=== PATIENT | male | born 1955 | race Caucasian/White ===

== ENCOUNTER → 2018-12-18 | Emergency (ER) | payer SELFPAY | END | disposition home or self-care (01) | LOC: FTE 10:32 | DX: L03.312 Cellulitis of back [any part except buttock and flank] (principal); F17.210 Nicotine dependence, cigarettes, uncomplicated; L72.0 Epidermal cyst | CPT/HCPCS: 99283 ==

== ENCOUNTER 2018-12-21 09:54 | Emergency (ER) | payer SELFPAY, MEDICAID ==
[2018-12-21] MEDS: LIDOCAINE 1% (MDV) 20 ML INJ SC (11:26)
== END 2018-12-21 12:44 | disposition home or self-care (01) ==
LOC: FTE 12:44
DX: L72.3 Sebaceous cyst (principal); F17.210 Nicotine dependence, cigarettes, uncomplicated; E11.9 Type 2 diabetes mellitus without complications
CPT/HCPCS: 10060; 99283-25

== ENCOUNTER → 2018-12-23 | Emergency (ER) | payer SELFPAY | END | disposition home or self-care (01) | LOC: FTE 09:16 | DX: Z48.01 Encounter for change or removal of surgical wound dressing (principal); F17.210 Nicotine dependence, cigarettes, uncomplicated; E11.9 Type 2 diabetes mellitus without complications | CPT/HCPCS: 99281 ==